=== PATIENT | female | born 1965 | race Caucasian/White ===

== ENCOUNTER 2021-09-27 17:19 | Emergency (ER) | payer SELFPAY | END 2021-09-27 18:24 | disposition left against medical advice (07) | LOC: ER 17:19 | DX: R05.9 Cough, unspecified (principal); R07.89 Other chest pain; R06.02 Shortness of breath; Z53.21 Procedure and treatment not carried out due to patient leaving prior to being seen by health care provider ==

== ENCOUNTER 2021-09-30 07:20 | Emergency (ER) | payer SELFPAY ==
[~2021-09-30] VITALS: Ht 170.2 cm; Wt 73.1 kg
--- NOTE | 2021-09-30 07:53 | PHYS DOC ---
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 She denies hemoptysis or hematemesis. She denies melena or hematochezia. She denies abdominal pain. She denies chest pain. She reports mild shortness of breath. She has been vaccinated against COVID, with her last vaccination occurring in November 2020. She has not received a booster. She did not receive an influenza vaccine this year. She reports a coworker developed symptoms similar to hers about 3 days prior to onset of her symptoms. Her coworker has returned to work since that time. She denies lower extremity pain or swelling. She denies dyspnea with exertion. She denies syncope or near syncope. She denies dizziness or diaphoresis. Review of Systems: Review of Systems: Constitutional: Fever, chills, myalgias and fatigue Eyes: Denies change in visual acuity. [] HENT: Nasal congestion, sore throat, bilateral otalgia Respiratory: Dry cough, denies hemoptysis. Reports mild shortness of breath Cardiovascular: Denies chest pain or edema. [] GI: Denies abdominal pain. She reports 1 episode of posttussive emesis, mild nausea. No persistent vomiting. Diarrhea began today. : Denies urinary symptoms. Musculoskeletal: She does report diffuse myalgias. Integument: Denies rash. [] Neurologic: Denies headache, focal weakness or sensory changes. [] Psychiatric: Denies depression or anxiety. [] Heart Score: C/O Chest Pain: No Risk Factors: Risk Factors: DM, Current or recent (<one month) smoker, HTN, HLP, family history of CAD, obesity. Risk Scores: Score 0 - 3: 2.5% MACE over next 6 weeks - Discharge Home Score 4 - 6: 20.3% MACE over next 6 weeks - Admit for Clinical Observation Score 7 - 10: 72.7% MACE over next 6 weeks - Early Invasive Strategies Physical Exam: PE: Constitutional: Well developed, well nourished, no acute distress, non-toxic appearance. [] HENT: Normocephalic, atraumatic, oropharynx is patent and clear, minimal erythema, no exudate. No swelling or edema. Mucous membranes are moist. TMs are dull bilaterally, no bulging, no effusion. No otorrhea. External canals are normal bilaterally. Eyes: Conjunctiva normal, no discharge. [] Neck: Normal range of motion, no tenderness, supple, no stridor. No meningism us. Trachea is midline. No JVD. Cardiovascular:Heart rate regular rhythm, S2 radial +2 dorsalis pedis pulses bilaterally Lungs & Thorax: Bilateral breath sounds clear to auscultation, no rales, rhonchi or wheezes. No stridor. No distress Abdomen: Abdomen is soft, nondistended, nontender to palpation, no CVA tendern ess Skin: Warm, dry, no erythema, no rash. [] Back: No tenderness, no CVA tenderness. [] Extremities: No tenderness, no cyanosis, no clubbing, ROM intact, no edema. No calf tenderness. Neurologic: Alert and oriented X 3, normal motor function, normal sensory function, no focal deficits noted. [] Psychologic: Affect normal, judgement normal, mood normal. She is pleasant and cooperative. EKG: EKG: [] Radiology/Procedures: Radiology/Procedures: IMAGING REPORT Signed PATIENT: LAURA WALDEN RACCOUNT: [id number] : 1965 LOCATION: ER AGE: 55 SEX: F EXAM STATUS: REG ER ORD. PHYSICIAN: AARON CHO DO REASON: cough, fever, chills PROCEDURE: PORTABLE CHEST 1V XR CHEST 1V History: Cough, fever, chills Comparison: None. Technique: Portable AP radiograph of the chest. Findings: The lungs are adequately inflated. There are prominent interstitial markings in the suggestion of hazy bilateral lower lobe predominant opacities. No pleural effusion or pneumothorax. The cardiomediastinal silhouette and pulmonary vasculature are within normal limits. Osseous structures and soft tissues are unremarkable. Impression: 1. Suggestion of hazy bilateral opacities may represent multifocal infection appropriate clinical setting. Electronically signed by: Alphonso Gardner MD (09/30/2021 8:41 AM) [facility] DICTATED and SIGNED BY: ALPHONSO GARDNER MD DATE: 09/30/21 [id number] 0 Course & Med Decision Making: Course & Med Decision Making Pertinent Labs and Imaging studies reviewed. (See chart for details) I discussed the findings, differential diagnosis and plan of care with the patient. She is resting comfortably, manifesting evidence of distress. She is given intramuscular Toradol for pain. She is given p.o. Tessalon for cough symptoms. She is given a first dose of antibiotics. There is no current indication for further invasive exams, imaging or admission. She manifest no evidence of hypoxia or distress. There is subtle infiltrates on her chest x- ray, rapid antigen test is negative. PCR is pending. I explained that COVID infection is still possible, she should self isolate at home, she may require repeat testing in the next 3 to 5 days. PCR should return in about 24 hours. Home care instructions given. Return precautions given. Dragon Disclaimer: Emery Disclaimer: This electronic medical record was generated, in whole or in part, using a voice recognition dictation system. Departure Departure Impression: Primary Impression: Pneumonia Disposition: HOME / SELF CARE / HOMELESS Condition: STABLE Referrals: JANA NICOLE (PCP) Patient Instructions: Pneumonia, Adult Additional Instructions: Take the full course of antibiotics. Use the cough and nausea medicine as needed. Return to the ER for uncontrolled vomiting, dehydration, severe chest p ain, shortness of breath, weakness, injury or any other concerns. Stay hydrated, stay home, drink plenty of fluids. You may need a repeat COVID swab in the next 3 to 5 days if you have persistent symptoms. Your rapid test is negative, though your PCR is pending and should be available in about 24 hours. Contact your primary care doctor for follow-up. Scripts Benzonatate (BENZONATATE) 200 Mg Capsule 1 CAP PO PRN TID PRN for cough, #20 CAP 0 Refills Prov: AARON CHO DO 09/30/21 Ondansetron Hcl (ONDANSETRON HCL) 4 Mg Tablet 1 TAB PO PRN Q6HRS for vomiting, #20 TAB 1 Refill Prov: AARON CHO DO 09/30/21 Azithromycin (AZITHROMYCIN TABLET) 250 Mg Tablet 250 MG PO DAILY for ANTI-BIOTIC for 4 Days, #4 TAB 0 Refills Prov: AARON CHO DO 09/30/21 AARON CHO DO Sep 30, 2021 07:53
[2021-09-30] MEDS ORDERED: KETOROLAC 60 MG/2 ML VIAL. IM ONE (08:15)
[2021-09-30] MEDS ORDERED: BENZONATATE 100 MG CAPSULE. PO ONE (08:15)
--- NOTE | 2021-09-30 08:43 | RAD ---
XR CHEST 1V History: Cough, fever, chills Comparison: None. Technique: Portable AP radiograph of the chest. Findings: The lungs are adequately inflated. There are prominent interstitial markings in the suggestion of haz y bilateral lower lobe predominant opacities. No pleural effusion or pneumothorax. The cardiomediasti nal silhouette and pulmonary vasculature are within normal limits. Osseous structures and soft tissue s are unremarkable. Impression: 1. Suggestion of hazy bilateral opacities may represent multifocal infection appropriate clinical se tting. Electronically signed by: Alphonso Helms MD (09/30/2021 8:41 AM) [facility]
[2021-09-30 08:49] LABS: INFLUENZA A PATIENT NEGATIVE (NEGATIVE); INFLUENZA B PATIENT NEGATIVE (NEGATIVE)
[2021-09-30 09:09] LABS: BILIRUBIN,URINE NEGATIVE (NEG); CLARITY,URINE CLEAR; COLOR,URINE YELLOW; NITRITE,URINE NEGATIVE (NEG); PROTEIN,URINE NEGATIVE (NEG-TRACE); UROBILINOGEN,URINE 0.2 mg/dL (0.2 mg/dL)
[2021-09-30 09:24] LABS: BACTERIA,URINE 0 /HPF (0-FEW); RBC,URINE OCC /HPF (0-2)
[2021-09-30 09:27] VITALS: BP 137/80
[2021-09-30] MEDS ORDERED: AZIT250T6 PO (09:54)
[2021-09-30] MEDS ORDERED: BENZ200C47 PO (09:54)
[2021-09-30] MEDS ORDERED: ONDA-84 PO (09:54)
[2021-09-30] MEDS ORDERED: AZITHROMYCIN 250 MG TABLET. PO ONE (10:00)
--- NOTE | 2021-10-01 17:05 | NUR ---
IP: Informed pt of negative covid test. Pt verbalized understanding.
== END 2021-09-30 10:25 | disposition home or self-care (01) ==
LOC: ER 07:20
DX: J18.9 Pneumonia, unspecified organism (principal); Z20.822 Contact with and (suspected) exposure to COVID-19; F17.200 Nicotine dependence, unspecified, uncomplicated
CPT/HCPCS: 71045; 81001; 96372; 99284; J1885; U0003; U0005